=== PATIENT | female | born 1955 | race Caucasian/White ===

== ENCOUNTER 2017-01-01 12:24 | Day surgery (SDC) | payer BC ==
[~2017-01-01] VITALS: Ht 174 cm; Wt 87.1 kg
[~2017-01-01 12:24] MED LIST: DAILY MULTIPLE1 EACH PO; FISH OIL 1,2001 EAC4 PO; TOPROL XL25 MG PO
[2017-01-01 16:00] VITALS: BP 123/53
[2017-01-01 16:59] VITALS: BP 120/62
== END 2017-01-01 17:04 | disposition home or self-care (01) ==
LOC: SDC 12:24
DX: H35.341 Macular cyst, hole, or pseudohole, right eye (principal); I10 Essential (primary) hypertension; F41.9 Anxiety disorder, unspecified; Z83.3 Family history of diabetes mellitus; Z82.49 Family history of ischemic heart disease and other diseases of the circulatory system; Z83.42 Family history of familial hypercholesterolemia
CPT/HCPCS: J0690; J2250; J3010; J3300